=== PATIENT | male | born 2000 | race Caucasian/White ===

== ENCOUNTER 2022-10-20 08:26 | Emergency (ER) | payer OTHER ==
[2022-10-20] MEDS ORDERED: diphenhydrAMINE 50 MG/ML SDV IVPUSH ONE (08:29)
[2022-10-20] MEDS ORDERED: methylPREDNISolone Sodium Succinate 125 MG/2 ML SDV IVPUSH ONE (08:29)
== END 2022-10-20 09:52 | disposition home or self-care (01) ==
LOC: VM.ED 08:26
DX: L50.9 Urticaria, unspecified (principal); Z79.899 Other long term (current) drug therapy
CPT/HCPCS: 96374; 96375; 99285-25; J1200; J2930

== ENCOUNTER 2024-02-15 13:22 | Emergency (ER) | payer OTHER | END 2024-02-15 13:51 | disposition home or self-care (01) | LOC: VM.ED 13:22 | DX: L30.9 Dermatitis, unspecified (principal); Z79.52 Long term (current) use of systemic steroids; Z79.899 Other long term (current) drug therapy | CPT/HCPCS: 99283 ==